=== PATIENT | male | born 1945 | race Caucasian/White ===

== ENCOUNTER 2023-09-19 15:02 | Inpatient (IN) ==
[2023-09-19] MEDS ORDERED: Metoprolol Tartrate 5 mg VIAL 5 ml VIAL (1 mg/ml) IV ONE (15:09)
[2023-09-19] MEDS ORDERED: TENECTEPLASE 50 MG VIAL KIT 5 MG/ML (reconstituted) IV ONE (15:17)
[2023-09-19] MEDS ORDERED: Iodixanol (CONTRAST) 320 MG/ML 100 ML SDV IV ONE (15:23)
[2023-09-19] MEDS ORDERED: niCARdipine 0.1MG/ML IVPREMIX 20 MG/200 ML BAG IV ONE (15:32)
[2023-09-19 15:41] LABS: ABS Eosinophils 0.2 10^3/uL (0.0-0.5); ABS Lymphocytes 2.6 10^3/uL (1.0-4.8); ABS Monocytes 0.8 10^3/uL (0.0-1.1); ABS Neutrophils 4.7 10^3/uL (1.5-7.6); ABS Nucleated RBC 0.02 10^3/ul; Eosinophil % 1.9 %; Hematocrit 44.2 % (38-53); Hemoglobin 14.7 g/dL (13.2-16.3); Lymphocyte % 31.7 %; Mean Corpuscular Hgb Conc 33.3 g/dL (31-36); Mean Corpuscular Volume 90.4 fL (80-97); Mean Platelet Volume 8.4 fL (7.5-11.2); Nucleated Red Blood Cells % 0.2 %/100WBC (0.0-0.8); Platelet Count 237 10^3/uL (150-450); Red Blood Count 4.89 10^6/uL (4.06-5.63); Red Cell Distribution Width 14.1 % (12-17); White Blood Count 8.3 10^3/uL (3.6-10.2)
[2023-09-19] MEDS: niCARdipine 0.1MG/ML IVPREMIX 20 MG/200 ML BAG IV SCH (15:42)
[2023-09-19 15:53] LABS: Activated Partial Thrombo Time 35.5 seconds (26.0-38.0); INR 0.99 (0.83-1.13)
[2023-09-19 16:19] LABS: Albumin/Globulin Ratio 1.3 (1-3); Calcium 10.4 mg/dL (8.6-10.3); Creatinine, Serum 1.21 mg/dL (0.67-1.17); Direct Bilirubin 0.1 mg/dL (0.03-0.18); Globulin 3.1 g/dL (2-4); HDL Cholesterol 54.8 mg/dL; Indirect Bilirubin 0.3 mg/dL (0.3-1.0); Potassium 3.9 mmol/L (3.5-5.0); Total Bilirubin 0.4 mg/dL (0.2-1.0); Total Protein 7.1 g/dL (6.4-8.9); eGFR CKD-EPI 60.5 (>60)
[2023-09-19] MEDS ORDERED: Dextrose 50% Syringe 50 ml 25 GM/50 ML SYRINGE IV PUSH PRN (16:58)
[2023-09-19] MEDS ORDERED: Lactated Ringers 1000 ml BAG 1,000 ML IV ONE (18:01)
[2023-09-20 04:31] LABS: ABS Basophils 0.1 10^3/uL (0.0-0.1); ABS Eosinophils 0.2 10^3/uL (0.0-0.5); ABS Lymphocytes 1.9 10^3/uL (1.0-4.8); ABS Monocytes 0.7 10^3/uL (0.0-1.1); ABS Neutrophils 5.3 10^3/uL (1.5-7.6); ABS Nucleated RBC 0.01 10^3/ul; Hematocrit 41.3 % (38-53); Hemoglobin 13.9 g/dL (13.2-16.3); Lymphocyte % 22.8 %; Mean Corpuscular Hemoglobin 30.3 pg (27-33); Mean Corpuscular Hgb Conc 33.8 g/dL (31-36); Mean Corpuscular Volume 89.8 fL (80-97); Mean Platelet Volume 8.5 fL (7.5-11.2); Nucleated Red Blood Cells % 0.1 %/100WBC (0.0-0.8); Platelet Count 208 10^3/uL (150-450); Red Cell Distribution Width 14.1 % (12-17); White Blood Count 8.2 10^3/uL (3.6-10.2)
[2023-09-20 04:50] LABS: Calcium 9.8 mg/dL (8.6-10.3); Creatinine, Serum 1.02 mg/dL (0.67-1.17); Magnesium 1.7 mg/dL (1.9-2.7); Potassium 3.5 mmol/L (3.5-5.0); eGFR CKD-EPI 74.3 (>60)
[2023-09-20] MEDS: niCARdipine 0.1MG/ML IVPREMIX 20 MG/200 ML BAG IV SCH ×3 (07:39→14:49)
[2023-09-20] MEDS ORDERED: Magnesium Sulfate 2 gm BAG 2 GM/50 ML BAG IVPB ONE (07:59)
[2023-09-20] MEDS ORDERED: Sulfur Hexaflouride MICROSPHR 25 MG VIAL ONE (08:55)
[2023-09-20] MEDS: KCL 20 MEQ/100 ML IVPREMIX 20 MEQ/100 ML BAG IV SCH ×2 (09:02→11:10)
[2023-09-20 14:05] LABS: Urine Appearance Clear; Urine Bilirubin Negative (Negative); Urine Blood Negative (Negative); Urine Color Yellow; Urine Glucose Negative (Negative); Urine Ketones Negative (Negative); Urine Nitrite Negative (Negative); Urine Protein Negative (Negative); Urine Specific Gravity 1.026 (1.002-1.030); Urine Urobilinogen Negative (Negative)
[2023-09-20] MEDS: Aspirin EC 81 mg TAB.EC (enteric coated) PO SCH (17:39)
[2023-09-20] MEDS: Enoxaparin 40 MG/0.4 ML SYR SUBCUT SCH (17:39)
[2023-09-21 05:49] LABS: ABS Eosinophils 0.2 10^3/uL (0.0-0.5); ABS Lymphocytes 1.5 10^3/uL (1.0-4.8); ABS Neutrophils 6.3 10^3/uL (1.5-7.6); ABS Nucleated RBC 0.01 10^3/ul; Eosinophil % 1.9 %; Hematocrit 40.9 % (38-53); Hemoglobin 13.9 g/dL (13.2-16.3); Lymphocyte % 16.5 %; Mean Corpuscular Hemoglobin 30.4 pg (27-33); Mean Corpuscular Hgb Conc 33.9 g/dL (31-36); Mean Corpuscular Volume 89.7 fL (80-97); Mean Platelet Volume 8.3 fL (7.5-11.2); Nucleated Red Blood Cells % 0.1 %/100WBC (0.0-0.8); Platelet Count 213 10^3/uL (150-450); Red Blood Count 4.56 10^6/uL (4.06-5.63); Red Cell Distribution Width 14.3 % (12-17); White Blood Count 8.9 10^3/uL (3.6-10.2)
[2023-09-21 06:06] LABS: Calcium 9.2 mg/dL (8.6-10.3); Creatinine, Serum 0.86 mg/dL (0.67-1.17); Magnesium 1.9 mg/dL (1.9-2.7); Potassium 3.7 mmol/L (3.5-5.0); eGFR CKD-EPI 87.5 (>60)
[2023-09-21] MEDS: Aspirin EC 81 mg TAB.EC (enteric coated) PO SCH (09:38)
[2023-09-21] MEDS: Enoxaparin 40 MG/0.4 ML SYR SUBCUT SCH (18:01)
[2023-09-22 05:39] LABS: ABS Basophils 0.1 10^3/uL (0.0-0.1); ABS Eosinophils 0.3 10^3/uL (0.0-0.5); ABS Lymphocytes 1.7 10^3/uL (1.0-4.8); ABS Monocytes 0.9 10^3/uL (0.0-1.1); ABS Neutrophils 4.4 10^3/uL (1.5-7.6); ABS Nucleated RBC 0.01 10^3/ul; Eosinophil % 3.8 %; Hematocrit 43.4 % (38-53); Hemoglobin 14.5 g/dL (13.2-16.3); Lymphocyte % 23.1 %; Mean Corpuscular Hgb Conc 33.4 g/dL (31-36); Mean Corpuscular Volume 89.8 fL (80-97); Mean Platelet Volume 8.4 fL (7.5-11.2); Nucleated Red Blood Cells % 0.1 %/100WBC (0.0-0.8); Platelet Count 215 10^3/uL (150-450); Red Blood Count 4.83 10^6/uL (4.06-5.63); Red Cell Distribution Width 14.1 % (12-17); White Blood Count 7.4 10^3/uL (3.6-10.2)
[2023-09-22 05:55] LABS: Calcium 9.5 mg/dL (8.6-10.3); Creatinine, Serum 1.01 mg/dL (0.67-1.17); Magnesium 1.8 mg/dL (1.9-2.7); Potassium 3.6 mmol/L (3.5-5.0); eGFR CKD-EPI 75.2 (>60)
[2023-09-22] MEDS: Aspirin EC 81 mg TAB.EC (enteric coated) PO SCH (08:57)
[2023-09-22] MEDS: Enoxaparin 40 MG/0.4 ML SYR SUBCUT SCH (17:15)
[2023-09-23] MEDS: Aspirin EC 81 mg TAB.EC (enteric coated) PO SCH (10:00)
[2023-09-23] MEDS: Enoxaparin 40 MG/0.4 ML SYR SUBCUT SCH (17:03)
[2023-09-24] MEDS: Aspirin EC 81 mg TAB.EC (enteric coated) PO SCH (08:03)
[2023-09-24 14:04] VITALS: BP 121/58
== END 2023-09-24 15:53 | DRG 63 ==
LOC: ED 15:02 → SUATTDRO 16:01 → EDHOLD 16:01 → MEDTELE 17:25 → ICU 17:30 → MEDTELE 09-20 21:45
PROVIDERS: ADMIT Student in an Organized Health Care Education/Training Program; ATTEND Internal Medicine

== ENCOUNTER 2023-09-24 11:36 | Inpatient (IN) ==
[2023-09-24] MEDS ORDERED: Senna TAB 8.6 mg TAB PO PRN (17:18)
[2023-09-24] MEDS ORDERED: Magnesium Hydroxide LIQ 30 ML UDC PO PRN (17:18)
[2023-09-24] MEDS ORDERED: Dextrose 50% Syringe 50 ml 25 GM/50 ML SYRINGE IV PUSH PRN (17:28)
[2023-09-24] MEDS: Enoxaparin 40 MG/0.4 ML SYR SUBCUT SCH (21:44)
[2023-09-25 06:23] LABS: ABS Basophils 0.1 10^3/uL (0.0-0.1); ABS Eosinophils 0.1 10^3/uL (0.0-0.5); ABS Lymphocytes 1.5 10^3/uL (1.0-4.8); ABS Monocytes 1.4 10^3/uL (0.0-1.1); ABS Neutrophils 7.9 10^3/uL (1.5-7.6); ABS Nucleated RBC 0.01 10^3/ul; Eosinophil % 0.7 %; Hematocrit 43.8 % (38-53); Hemoglobin 14.7 g/dL (13.2-16.3); Lymphocyte % 13.5 %; Mean Corpuscular Hemoglobin 30.3 pg (27-33); Mean Corpuscular Hgb Conc 33.7 g/dL (31-36); Mean Platelet Volume 8.6 fL (7.5-11.2); Nucleated Red Blood Cells % 0.1 %/100WBC (0.0-0.8); Platelet Count 210 10^3/uL (150-450); Red Blood Count 4.87 10^6/uL (4.06-5.63); Red Cell Distribution Width 14.1 % (12-17); White Blood Count 10.8 10^3/uL (3.6-10.2)
[2023-09-25 06:39] LABS: Albumin 3.9 g/dL (3.2-5.2); Albumin/Globulin Ratio 1.2 (1-3); Calcium 9.7 mg/dL (8.6-10.3); Creatinine, Serum 1.14 mg/dL (0.67-1.17); Globulin 3.2 g/dL (2-4); Potassium 3.5 mmol/L (3.5-5.0); Total Bilirubin 1.3 mg/dL (0.2-1.0); Total Protein 7.1 g/dL (6.4-8.9)
[2023-09-25] MEDS: Aspirin EC 81 mg TAB.EC (enteric coated) PO SCH (08:32)
[2023-09-26] MEDS: Potassium Chlor 20 meq TAB.ER PO ONE (19:26)
[2023-09-27 08:16] LABS: Calcium 9.7 mg/dL (8.6-10.3); Creatinine, Serum 1.24 mg/dL (0.67-1.17); Magnesium 1.8 mg/dL (1.9-2.7); Potassium 3.7 mmol/L (3.5-5.0); eGFR CKD-EPI 58.8 (>60)
[2023-09-27] MEDS: D5NS 0.9% 1000 ml BAG 1,000 ML IV SCH (21:32)
[2023-09-29 07:01] LABS: Calcium 9.4 mg/dL (8.6-10.3); Creatinine, Serum 1.12 mg/dL (0.67-1.17); Potassium 3.7 mmol/L (3.5-5.0); eGFR CKD-EPI 66.4 (>60)
[2023-09-29 20:01] VITALS: BP 121/69
== END 2023-09-30 04:00 | disposition short-term general hospital (02) | DRG 57 ==
LOC: PMRU 15:57
PROVIDERS: ADMIT Physical Medicine & Rehabilitation; ATTEND Physical Medicine & Rehabilitation

== ENCOUNTER 2023-09-30 03:31 | Observation (INO) ==
[2023-09-30 04:29] LABS: ABS Basophils 0.1 10^3/uL (0.0-0.1); ABS Eosinophils 0.1 10^3/uL (0.0-0.5); ABS Lymphocytes 2.1 10^3/uL (1.0-4.8); ABS Monocytes 0.8 10^3/uL (0.0-1.1); Eosinophil % 1.5 %; Hematocrit 34.2 % (38-53); Hemoglobin 11.8 g/dL (13.2-16.3); Lymphocyte % 25.9 %; Mean Corpuscular Hemoglobin 31.1 pg (27-33); Mean Corpuscular Hgb Conc 34.6 g/dL (31-36); Platelet Count 277 10^3/uL (150-450); Red Cell Distribution Width 13.8 % (12-17)
[2023-09-30 04:46] LABS: Albumin 3.3 g/dL (3.2-5.2); Albumin/Globulin Ratio 1.1 (1-3); Calcium 9.3 mg/dL (8.6-10.3); Creatinine, Serum 1.15 mg/dL (0.67-1.17); Globulin 2.9 g/dL (2-4); Potassium 3.7 mmol/L (3.5-5.0); Total Bilirubin 0.5 mg/dL (0.2-1.0); Total Protein 6.2 g/dL (6.4-8.9); eGFR CKD-EPI 64.3 (>60)
[2023-09-30 05:01] LABS: Activated Partial Thrombo Time 30.8 seconds (26.0-38.0); INR 1.14 (0.83-1.13)
[2023-09-30] MEDS ORDERED: Lorazepam PYXIS KEY PRN (05:01)
[2023-09-30] MEDS ORDERED: Dextrose 50% Syringe 50 ml 25 GM/50 ML SYRINGE IV PUSH PRN (05:06)
[2023-09-30] MEDS ORDERED: Al Hydrox/Mg Hydrox/Simet LIQ 30 ML UDC PO PRN (05:07)
[2023-09-30] MEDS ORDERED: Ondansetron 4 mg VIAL 2 MG/ML 2 ml VIAL IV PRN (05:07)
[2023-09-30] MEDS: Pantoprazole VIAL 40 MG VIAL IV ONE (05:20)
[2023-09-30] MEDS: LORazepam 2 mg VIAL 1 ml IM ONE (05:20)
[2023-09-30] MEDS: NS 0.9% 1000 ml BAG 1,000 ML IV SCH (06:08)
[2023-09-30] MEDS: Pantoprazole 80 mg in NS BAG 80 MG/250 ML BAG IV ONE (06:08)
[2023-09-30] MEDS ORDERED: Midazolam 10 mg/10 ml VIAL 1 mg/ml 10 ml VIAL (10 mg) ONE (11:24)
[2023-09-30] MEDS ORDERED: fentaNYL 100 mcg/2 ml 50 MCG/ML VIAL ONE (11:24)
[2023-09-30 15:20] LABS: Hematocrit 35.2 % (38-53); Hemoglobin 11.8 g/dL (13.2-16.3)
[2023-09-30] MEDS: Pantoprazole 80 mg in NS BAG 80 MG/250 ML BAG IV SCH (18:44)
[2023-09-30 20:47] LABS: Hematocrit 34.3 % (38-53); Hemoglobin 11.6 g/dL (13.2-16.3)
[2023-10-01 06:08] LABS: ABS Eosinophils 0.1 10^3/uL (0.0-0.5); ABS Lymphocytes 1.3 10^3/uL (1.0-4.8); ABS Monocytes 0.8 10^3/uL (0.0-1.1); ABS Neutrophils 5.9 10^3/uL (1.5-7.6); Eosinophil % 0.8 %; Hematocrit 35.4 % (38-53); Hemoglobin 11.7 g/dL (13.2-16.3); Lymphocyte % 15.9 %; Mean Corpuscular Hemoglobin 30.6 pg (27-33); Mean Corpuscular Volume 92.8 fL (80-97); Mean Platelet Volume 8.8 fL (7.5-11.2); Platelet Count 238 10^3/uL (150-450); Red Blood Count 3.82 10^6/uL (4.06-5.63); Red Cell Distribution Width 14.5 % (12-17); White Blood Count 8.1 10^3/uL (3.6-10.2)
[2023-10-01 06:15] LABS: Calcium 9.3 mg/dL (8.6-10.3); Creatinine, Serum 0.93 mg/dL (0.67-1.17)
[2023-10-01] MEDS: Pantoprazole VIAL 40 MG VIAL IV SCH (11:18)
[2023-10-02 05:56] LABS: ABS Eosinophils 0.1 10^3/uL (0.0-0.5); ABS Lymphocytes 1.5 10^3/uL (1.0-4.8); ABS Neutrophils 7.7 10^3/uL (1.5-7.6); ABS Nucleated RBC 0.01 10^3/ul; Eosinophil % 0.8 %; Hematocrit 32.9 % (38-53); Hemoglobin 10.9 g/dL (13.2-16.3); Lymphocyte % 14.3 %; Mean Corpuscular Hemoglobin 30.5 pg (27-33); Mean Corpuscular Hgb Conc 33.2 g/dL (31-36); Mean Platelet Volume 8.6 fL (7.5-11.2); Nucleated Red Blood Cells % 0.1 %/100WBC (0.0-0.8); Platelet Count 256 10^3/uL (150-450); Red Blood Count 3.58 10^6/uL (4.06-5.63); Red Cell Distribution Width 13.9 % (12-17); White Blood Count 10.3 10^3/uL (3.6-10.2)
[2023-10-02 06:08] LABS: Calcium 9.5 mg/dL (8.6-10.3); Creatinine, Serum 0.98 mg/dL (0.67-1.17); Potassium 3.9 mmol/L (3.5-5.0)
[2023-10-03 05:38] LABS: ABS Eosinophils 0.1 10^3/uL (0.0-0.5); ABS Lymphocytes 1.4 10^3/uL (1.0-4.8); ABS Monocytes 0.9 10^3/uL (0.0-1.1); ABS Neutrophils 7.3 10^3/uL (1.5-7.6); ABS Nucleated RBC 0.01 10^3/ul; Eosinophil % 0.7 %; Hematocrit 30.8 % (38-53); Hemoglobin 10.5 g/dL (13.2-16.3); Lymphocyte % 13.9 %; Mean Corpuscular Hemoglobin 30.7 pg (27-33); Mean Corpuscular Hgb Conc 34.1 g/dL (31-36); Mean Corpuscular Volume 90.1 fL (80-97); Mean Platelet Volume 8.7 fL (7.5-11.2); Nucleated Red Blood Cells % 0.1 %/100WBC (0.0-0.8); Platelet Count 250 10^3/uL (150-450); Red Blood Count 3.42 10^6/uL (4.06-5.63); Red Cell Distribution Width 13.9 % (12-17); White Blood Count 9.7 10^3/uL (3.6-10.2)
[2023-10-03 06:00] LABS: Calcium 9.1 mg/dL (8.6-10.3); Creatinine, Serum 0.91 mg/dL (0.67-1.17); Potassium 3.6 mmol/L (3.5-5.0); eGFR CKD-EPI 85.2 (>60)
[2023-10-03 10:06] VITALS: BP 138/65
== END 2023-10-03 14:05 ==
LOC: EDHOLD 03:31 → ED 03:31 → SUATTDRO 05:07 → EDHOLD 08:10 → MEDTELE 17:28
PROVIDERS: ADMIT Internal Medicine; ATTEND Hospitalist

== ENCOUNTER 2023-10-03 10:57 | Inpatient (IN) ==
[2023-10-03] MEDS ORDERED: Dextrose 50% Syringe 50 ml 25 GM/50 ML SYRINGE IV PUSH PRN ×2 (18:00→18:01)
[2023-10-03] MEDS: D5W 1/2 NS 1000 ml BAG 1,000 ML IV SCH (22:50)
[2023-10-04 06:37] LABS: ABS Eosinophils 0.1 10^3/uL (0.0-0.5); ABS Lymphocytes 1.4 10^3/uL (1.0-4.8); ABS Monocytes 0.9 10^3/uL (0.0-1.1); ABS Neutrophils 6.3 10^3/uL (1.5-7.6); Eosinophil % 1.1 %; Hematocrit 29.8 % (38-53); Hemoglobin 10.3 g/dL (13.2-16.3); Lymphocyte % 16.1 %; Mean Corpuscular Hemoglobin 31.2 pg (27-33); Mean Corpuscular Hgb Conc 34.5 g/dL (31-36); Mean Corpuscular Volume 90.4 fL (80-97); Mean Platelet Volume 8.6 fL (7.5-11.2); Platelet Count 249 10^3/uL (150-450); Red Cell Distribution Width 13.7 % (12-17); White Blood Count 8.8 10^3/uL (3.6-10.2)
[2023-10-04 06:57] LABS: Albumin 3.2 g/dL (3.2-5.2); Calcium 9.2 mg/dL (8.6-10.3); Creatinine, Serum 0.88 mg/dL (0.67-1.17); Globulin 3.1 g/dL (2-4); Potassium 3.7 mmol/L (3.5-5.0); Total Bilirubin 0.5 mg/dL (0.2-1.0); Total Protein 6.3 g/dL (6.4-8.9); eGFR CKD-EPI 86.9 (>60)
[2023-10-04] MEDS: Aspirin EC 81 mg TAB.EC (enteric coated) PO SCH (08:14)
[2023-10-06 07:22] LABS: ABS Eosinophils 0.2 10^3/uL (0.0-0.5); ABS Lymphocytes 1.4 10^3/uL (1.0-4.8); ABS Monocytes 0.7 10^3/uL (0.0-1.1); ABS Neutrophils 6.4 10^3/uL (1.5-7.6); Eosinophil % 1.8 %; Hemoglobin 10.4 g/dL (13.2-16.3); Lymphocyte % 15.6 %; Mean Corpuscular Hemoglobin 30.5 pg (27-33); Mean Corpuscular Hgb Conc 33.4 g/dL (31-36); Mean Corpuscular Volume 91.3 fL (80-97); Mean Platelet Volume 8.3 fL (7.5-11.2); Platelet Count 284 10^3/uL (150-450); Red Cell Distribution Width 14.1 % (12-17); White Blood Count 8.7 10^3/uL (3.6-10.2)
[2023-10-07] MEDS: PAIN RELIEVING RUB (MENTHOL/SALICYLATE) 1 APPLIC TUBE TOPICAL PRN (08:38)
[2023-10-09 07:34] LABS: ABS Eosinophils 0.2 10^3/uL (0.0-0.5); ABS Lymphocytes 1.2 10^3/uL (1.0-4.8); ABS Monocytes 0.5 10^3/uL (0.0-1.1); ABS Neutrophils 4.4 10^3/uL (1.5-7.6); Eosinophil % 2.8 %; Hematocrit 31.7 % (38-53); Hemoglobin 10.4 g/dL (13.2-16.3); Lymphocyte % 19.3 %; Mean Corpuscular Hemoglobin 29.9 pg (27-33); Mean Corpuscular Hgb Conc 32.8 g/dL (31-36); Mean Corpuscular Volume 91.3 fL (80-97); Mean Platelet Volume 7.7 fL (7.5-11.2); Platelet Count 341 10^3/uL (150-450); Red Blood Count 3.48 10^6/uL (4.06-5.63); White Blood Count 6.4 10^3/uL (3.6-10.2)
[2023-10-11 07:56] LABS: ABS Eosinophils 0.2 10^3/uL (0.0-0.5); ABS Lymphocytes 1.3 10^3/uL (1.0-4.8); ABS Monocytes 0.4 10^3/uL (0.0-1.1); ABS Nucleated RBC 0.01 10^3/ul; Eosinophil % 3.1 %; Hemoglobin 11.2 g/dL (13.2-16.3); Lymphocyte % 21.5 %; Mean Corpuscular Hemoglobin 29.9 pg (27-33); Mean Corpuscular Hgb Conc 32.9 g/dL (31-36); Mean Corpuscular Volume 91.1 fL (80-97); Mean Platelet Volume 7.6 fL (7.5-11.2); Nucleated Red Blood Cells % 0.1 %/100WBC (0.0-0.8); Platelet Count 385 10^3/uL (150-450); Red Blood Count 3.73 10^6/uL (4.06-5.63); Red Cell Distribution Width 14.3 % (12-17)
[2023-10-11 08:37] LABS: Albumin 3.4 g/dL (3.2-5.2); Albumin/Globulin Ratio 1.2 (1-3); Calcium 9.6 mg/dL (8.6-10.3); Creatinine, Serum 0.95 mg/dL (0.67-1.17); Globulin 2.9 g/dL (2-4); Potassium 4.4 mmol/L (3.5-5.0); Total Bilirubin 0.4 mg/dL (0.2-1.0); Total Protein 6.3 g/dL (6.4-8.9); eGFR CKD-EPI 80.9 (>60)
[2023-10-15 05:44] LABS: ABS Eosinophils 0.2 10^3/uL (0.0-0.5); ABS Lymphocytes 1.4 10^3/uL (1.0-4.8); ABS Monocytes 0.5 10^3/uL (0.0-1.1); ABS Neutrophils 3.2 10^3/uL (1.5-7.6); Eosinophil % 3.5 %; Hematocrit 32.4 % (38-53); Hemoglobin 10.9 g/dL (13.2-16.3); Mean Corpuscular Hemoglobin 30.3 pg (27-33); Mean Corpuscular Hgb Conc 33.5 g/dL (31-36); Mean Corpuscular Volume 90.2 fL (80-97); Mean Platelet Volume 7.7 fL (7.5-11.2); Nucleated Red Blood Cells % 0.1 %/100WBC (0.0-0.8); Platelet Count 367 10^3/uL (150-450); Red Blood Count 3.59 10^6/uL (4.06-5.63); Red Cell Distribution Width 14.1 % (12-17); White Blood Count 5.3 10^3/uL (3.6-10.2)
[2023-10-15] MEDS: Magnesium Hydroxide LIQ 30 ML UDC PO PRN (18:06)
[2023-10-15] MEDS: Senna TAB 8.6 mg TAB PO PRN (18:11)
[2023-10-18 06:38] LABS: ABS Eosinophils 0.1 10^3/uL (0.0-0.5); ABS Lymphocytes 1.2 10^3/uL (1.0-4.8); ABS Monocytes 0.9 10^3/uL (0.0-1.1); Eosinophil % 1.4 %; Hematocrit 33.4 % (38-53); Hemoglobin 11.3 g/dL (13.2-16.3); Lymphocyte % 14.6 %; Mean Corpuscular Hemoglobin 30.1 pg (27-33); Mean Corpuscular Hgb Conc 33.7 g/dL (31-36); Mean Corpuscular Volume 89.3 fL (80-97); Mean Platelet Volume 7.9 fL (7.5-11.2); Platelet Count 352 10^3/uL (150-450); Red Blood Count 3.74 10^6/uL (4.06-5.63); Red Cell Distribution Width 14.3 % (12-17); White Blood Count 8.2 10^3/uL (3.6-10.2)
[2023-10-18 07:24] LABS: Albumin 3.6 g/dL (3.2-5.2); Albumin/Globulin Ratio 1.4 (1-3); Creatinine, Serum 1.35 mg/dL (0.67-1.17); Globulin 2.6 g/dL (2-4); Potassium 4.2 mmol/L (3.5-5.0); Total Bilirubin 0.6 mg/dL (0.2-1.0); Total Protein 6.2 g/dL (6.4-8.9); eGFR CKD-EPI 53.1 (>60)
[2023-10-18] MEDS: D5NS 0.9% 1000 ml BAG 1,000 ML IV SCH (14:24)
[2023-10-19 05:51] VITALS: BP 97/59
== END 2023-10-19 16:00 | disposition home or self-care (01) | DRG 65 ==
LOC: PMRU 14:21
PROVIDERS: ADMIT Physical Medicine & Rehabilitation; ATTEND Physical Medicine & Rehabilitation